=== PATIENT | female | born 1940 | race Two or more races ===

== ENCOUNTER 2018-07-29 10:06 | Outpatient (CLI) | payer OTHER, BC | END 2018-07-29 10:14 | disposition home or self-care (01) | LOC: MAMO-SONO 10:06 | DX: Z12.31 Encounter for screening mammogram for malignant neoplasm of breast (principal); Z87.898 Personal history of other specified conditions; N64.89 Other specified disorders of breast; E04.2 Nontoxic multinodular goiter ==

== ENCOUNTER → 2019-08-11 | Outpatient (CLI) | payer OTHER, BC | END | disposition home or self-care (01) | LOC: MAMO-SONO 10:15 | DX: E04.2 Nontoxic multinodular goiter (principal); N64.4 Mastodynia; Z12.31 Encounter for screening mammogram for malignant neoplasm of breast ==

== ENCOUNTER 2021-01-21 12:29 | Outpatient (CLI) | payer OTHER | END 2021-01-21 12:41 | disposition home or self-care (01) | LOC: MAMO-SONO 12:29 | PROVIDERS: ATTEND Obstetrics & Gynecology Obstetrics | DX: N64.4 Mastodynia (principal); E03.9 Hypothyroidism, unspecified; Z12.31 Encounter for screening mammogram for malignant neoplasm of breast ==

== ENCOUNTER 2022-01-27 09:55 | Outpatient (CLI) | payer OTHER | END 2022-01-27 10:03 | disposition home or self-care (01) | LOC: MAMO-SONO 09:55 | PROVIDERS: ATTEND Family Medicine | DX: Z12.31 Encounter for screening mammogram for malignant neoplasm of breast (principal); E03.9 Hypothyroidism, unspecified; N63.0 Unspecified lump in unspecified breast ==

== ENCOUNTER 2023-07-17 10:21 | Outpatient (CLI) | payer OTHER | END 2023-07-17 10:28 | disposition home or self-care (01) | LOC: SONOGRAMA 10:21 | PROVIDERS: ATTEND Family Medicine | DX: E03.9 Hypothyroidism, unspecified (principal) ==